=== PATIENT | male | born 1950 | race Caucasian/White ===

== ENCOUNTER 2016-11-06 08:54 | Emergency (ER) | payer OTHER ==
[~2016-11-06] VITALS: Ht 177.8 cm; Wt 91.3 kg
[~2016-11-06 08:54] MED LIST: ALPR0.257 PO; AMLO5TAB2 PO; ATOR40TA78 PO; BUPR150T20 PO; BUSP30TA PO; CALCIUM D; FLUO40CA2 PO; LISI-170 PO; MULT-257 PO; OXYC5TAB3 PO; TIZA4CAP PO; VIT D
[2016-11-06] MEDS ORDERED: ONDANSETRON 2MG/ML, 2ML ONE (09:51)
[2016-11-06] MEDS ORDERED: HYDROmorphone 1 MG/ML, 1ML ONE ×2 (09:51→10:14)
[2016-11-06] MEDS: HYDROmorphone 1 MG/ML, 1ML IVPush PRN ×2 (09:54→10:16)
[2016-11-06] MEDS ORDERED: ONDANSETRON 2MG/ML, 2ML IVPush ONE (10:00)
[2016-11-06] MEDS ORDERED: SODIUM CHLORIDE FLUSH 10ML SYR IVF ONE (10:00)
[2016-11-06] MEDS ORDERED: SODIUM CHLORIDE 0.9% 1,000ML IVBOLUS ONE (10:00)
[2016-11-06 10:26] LABS: BLOOD UREA NITROGEN 17 mg/dL (7-18)
[2016-11-06 10:31] LABS: ASPARTATE AMINO TRANSFERASE 38 U/L (15-37)
[2016-11-06 11:25] LABS: PATH.CAST-FLAG NOT PRESENT; SPERM-FLAG NOT PRESENT; SRC-FLAG NOT PRESENT; XTAL-FLAG NOT PRESENT; YLC-FLAG NOT PRESENT
[2016-11-06 12:00] VITALS: BP 143/86
== END 2016-11-06 12:02 | disposition home or self-care (01) ==
LOC: ED 11:34
DX: N13.2 Hydronephrosis with renal and ureteral calculous obstruction (principal); E78.5 Hyperlipidemia, unspecified; I10 Essential (primary) hypertension
CPT/HCPCS: 36415; 74176; 80053; 81001; 83605; 83690; 85025; 87040; 96361; 96374; 96375; 99285; J1170; J2405; J7030

== ENCOUNTER → 2018-11-02 | Outpatient (CLI) | payer MEDICARE ==
[~2018-11-02] MED LIST changes: +AMLO-150 PO; -AMLO5TAB2 PO; +OMNIPAQUE 350 MG/ML, 150 ML BOTTLE ONE
== END | disposition home or self-care (01) ==
LOC: CFH 14:00
PROVIDERS: ATTEND Physician Assistant
DX: N28.1 Cyst of kidney, acquired (principal); N20.0 Calculus of kidney; R31.0 Gross hematuria; E78.00 Pure hypercholesterolemia, unspecified; I10 Essential (primary) hypertension; Z87.891 Personal history of nicotine dependence; Z90.49 Acquired absence of other specified parts of digestive tract; Z80.42 Family history of malignant neoplasm of prostate
CPT/HCPCS: 74178; Q9967

== ENCOUNTER 2019-01-24 12:28 | Outpatient (CLI) | payer MEDICARE | END 2019-01-24 23:59 | disposition home or self-care (01) | LOC: CVU 12:28 | PROVIDERS: ATTEND Physician Assistant | DX: I65.21 Occlusion and stenosis of right carotid artery (principal); I10 Essential (primary) hypertension; R42 Dizziness and giddiness | CPT/HCPCS: 93880 ==